=== PATIENT | male | born 1990 | race Two or more races ===

== ENCOUNTER 2021-07-07 22:27 | Emergency (ER) | payer MEDICAID, OTHER ==
[~2021-07-07] VITALS: Ht 167.6 cm; Wt 77.1 kg
--- NOTE | 2021-07-07 22:42 | NUR ---
PT BIBSELF C/O SI AND FEELING DEPRESSED. PT AAOX4 BREATHING EVENLY AND UNLABORED. ALL BELONGINGS TAKEN AND PLACED IN LOCKER. PT CHANGED INTO GOWN. PT ATTACHED TO MONITOR AND POX. SITTER AT BEDSIDE
[2021-07-07 22:58] LABS: BASOPHILS # (AUTO) 0.2 K/uL (0.0-0.2); BASOPHILS % (AUTO) 1.4 % (0.0-2.0); EOSINOPHILS % (AUTO) 1.1 % (0.0-6.0); HEMATOCRIT 47 % (39-51); HEMOGLOBIN 15.4 g/dL (13.5-17.5); LYMPHOCYTES # (AUTO) 0.8 K/uL (0.8-4.8); LYMPHOCYTES % (AUTO) 6.5 % (20.0-44.0); MEAN CORPUSCULAR HGB CONC 33 g/dl (31.0-36.0); MEAN CORPUSCULAR VOLUME 94 fL (80-96); MONOCYTES # (AUTO) 0.6 K/uL (0.1-1.30); MONOCYTES % (AUTO) 5.1 % (2.0-12.0); NEUTROPHILS % (AUTO) 85.9 % (43.0-81.0); PLATELET COUNT (AUTO) 344 K/uL (150-450); RED BLOOD CELL COUNT(AUTO) 4.96 MIL/uL (4.5-6.0); WHITE BLOOD COUNT (AUTO) 11.7 K/uL (4.3-11.0)
[2021-07-07 23:00] LABS: BILIRUBIN,URINE Negative (NEGATIVE); COLOR,URINE YELLOW (YELLOW); LEUKOCYTE ESTERASE ,URINE Negative (NEGATIVE); NITRITE, URINE Negative (NEGATIVE); PH,URINE 7.5 (5.0-8.0); PROTEIN,URINE Negative (NEGATIVE); UGLUCOSE Negative (NEGATIVE)
[2021-07-07 23:08] LABS: CALCIUM, SERUM 8.7 mg/dL (8.5-10.1); CARBON DIOXIDE 30 mmol/L (21-32); CHLORIDE 103 mmol/L (98-107); CREATININE 0.9 mg/dL (0.6-1.3); GLUCOSE 111 mg/dL (74-106); POTASSIUM 4.1 mmol/L (3.5-5.1); SODIUM SERUM 139 mmol/L (136-145); UREA NITROGEN, BLOOD 6 mg/dL (7-18)
[2021-07-07 23:16] LABS: ALANINE AMINOTRANSFERASE 58 U/L (12-78); ALKALINE PHOSPHATASE 94 U/L (46-116); ASPARTATE AMINOTRANSFERASE 36 U/L (15-37); BILIRUBIN,DIRECT 0.2 mg/dL (0.0-0.2); BILIRUBIN,TOTAL 0.6 mg/dL (0.2-1.0); TOTAL PROTEIN, SERUM 8.4 g/dL (6.4-8.2)
[2021-07-07 23:17] LABS: ACETAMINOPHEN 0 ug/ml (10-30); ALCOHOL, BLOOD < 3 mg/dL (0-0)
--- NOTE | 2021-07-08 00:06 | NUR ---
PT WALKED TO RESTROOM, NEEDS MET
--- NOTE | 2021-07-08 01:15 | NUR ---
PT SLEEPING, ATTACHED TO MONITOR, NAD
--- NOTE | 2021-07-08 02:36 | NUR ---
PT SLEEPING, ATTACHED TO MONITOR, BREATHING EVENLY AND UNLABORED
--- NOTE | 2021-07-08 03:20 | NUR ---
CLINICALS AND FACE SHEET FAXED TO [facility]
--- NOTE | 2021-07-08 03:28 | NUR ---
Patient is resting comfortably in bed with eyes closed. Easily aroused. VSS
--- NOTE | 2021-07-08 04:29 | NUR ---
COVID SWAB SENT TO LAB
--- NOTE | 2021-07-08 05:53 | NUR ---
faxed covid result to [facility]
--- NOTE | 2021-07-08 06:08 | NUR ---
SPOKE TO ART AT [facility]. . HAS REC'D THE COVID RESULT
--- NOTE | 2021-07-08 07:03 | NUR ---
Patient is resting comfortably in bed with eyes closed. Easily aroused. VSS
--- NOTE | 2021-07-08 10:58 | NUR ---
TINA met with pt. Per pt., he wanted a referral to [facility]. TINA faxed over clinical reports to [facility] [[phone]]. TINA will notify nurse once [facility] has a bed open.
--- NOTE | 2021-07-08 11:27 | NUR ---
SS Consult: SS consult for SI. Pt. Is a 30-year-old male. Pt. demonstrates adequate insight to the reason for hospitalization. Per pt., he was brought to hospital by manager of manufacturing due to unusual behavior on the streets. Pt. was oriented x3, alert, and cooperative. During interview, pt. was capable of following directions, made appropriate eye-contact, but tend to forget. Per pt., he just got out of [facility] about [facility] weeks ago and has been homeless for a week. Pt. reported that he stayed with his dad once he got out of [facility], but his dad kicked him out. Per pt., he reports having no adequate support. Pt. mentioned that he has been going to a friend to shower [no information provided]. Pt. reported having SI thoughts and tried hurting himself by jumping in front of traffic. SW explored pt.'s Hx of mental health and substance abuse. Pt. reported no Hx of mental health, HI, paranoia or delusions. Per pt., he hallucinates, but is not sure. Pt. reported that he has been hearing, "Someone is trying to kill you." Pt. reported that he smokes marijuana in the past. TINA explored pt.'s living situation. Per pt., he lives on the streets. SW explored pt.'s financial status. Per pt., he just got hired to a new job about a week ago but has not gone to work due to being homeless. Per pt., it has been difficult. Pt. is willing to go [facility]. TINA faxed clinical reports to [facility] [Ari [phone]]. Pt. was willing to sign Homeless Waiver. Plan: TINA provided available homeless resources and pt. accepted. TINA made a referral to [facility] for pt. due to SI. (If denied: Pt. was offered resources but pt. denies interest at this time.). Once discharge, per pt., he will return to (home or wherever) [address of place]. Resources Provided: Year-round shelters: [facility] [address] [place] [address] ; [facility] [address] [place] [address]; [facility] [id number] [facility] [address] Winter Shelters: Niraj Haji [place] Provider: [facility] [place] Address: [address], [address] # of Beds: 47 Population Served: [facility] 6 | [facility] Quynh Gregory [place] Provider: [facility] Address: [address] [place] [address], [address] # of Beds: 66 Population Served: [facility] Jackson [place] Provider: [facility] Address: [address] [facility], [address] # of Beds: 56 Population Served: [facility] [place] Provider: /Ms. [facility] Address: [address] [facility], [address] # of Beds: 49 Population Served: [facility] 8 | [facility] Provider: [facility] Address: [address] [facility], [address] # of Beds: 37 Population Served: [facility] Hygiene: [facility]: [address] [facility] ; [facility] [facility] [address] [facility] ; [facility] [address] [facility] . Food Resources: [place] [facility] at [facility]- [address] [facility]; Meet Each Need with Dignity ([facility]) [address] [facility]; [facility] Food [facility] [address] [facility]; [facility] 8582 [facility]. Mental Health resources provided: [facility] [address] [place] [address] ; [facility] [address] [facility] [address], [place] [address] ; [facility] [address] [place] [address] ; [facility] [place], [place] [id number] Healthcare Clinics: [facility] [address], [address] [place]. [place] ; [facility] [address] [facility] [address] [place] [address]; [facility] [address] [facility] [place] [address] [phone] Counseling--Outpatient [facility] [address] [facility], [place] [address] (Specializes in in-depth psychotherapy for emotional distress: anxiety, depression, interpersonal conflicts, life transitions, childhood abuse) [facility] [address] [place] [address] (Assist with solving problem marital difficulties, separation & divorce, aging parents, & grief, chronic & terminal illness) [facility] [address] [place] [address] (Deal with loss & grief, anxiety, marital difficulties) [facility] [address], [address] [place] [address] (Provide in-home mental services to people who are incapable of leaving their homes) [facility] [address] [place] [address] [facility] [address] [place] [address] PSYCHIATRIC OUTPATIENT SERVICES [facility] Partial Hospitalization and Intensive Outpatient Program (Managed Care and [place] Only)[address] [address] Julian. [facility] [phone] [facility] Partial Hospitalization and Outpatient [id number] [place], [place] [phone] ASTRID SHAE [facility] [place] [address] [place], [place] [phone] [facility] Astrid Guzman Partial Hospitalization and Outpatient [id number] Leah Santiago, [phone] Substance Abuse resources provided included: [facility] Substance Abuse Self-Helpline ([facility]) ; [facility] [address] [facility]. [place] [address] ; [facility] [address] [facility] [address] ; [facility] [address] [place] [address] ; [facility] [address] [facility] [phone] ; [facility] [address] [facility] [phone] ; Priscilla [facility] [address] [facility] [phone] ; [facility] Substance Abuse Helpline([facility] ; [facility] ; [facility] [place]; [facility] [place]; [facility] [place]; [facility] Astrid Guzman; [facility] [place]; [facility]; [facility] [place]; [facility] [place] [place]; Alcoholics Anonymous -[facility]; Ol-Gzcd-Bzxpwgk ; Marijuana Anonymous [facility]; Narcotics Anonymous [email or web address];
--- NOTE | 2021-07-08 11:32 | NUR ---
PT ACCEPTED TO [facility] UNDER DR. PAN CALL [phone] X [phone] FOR REPORT AFTER 1200
--- NOTE | 2021-07-08 11:36 | NUR ---
CALLED TRANSPORT ETA 60 MINS PER HAILEY.
--- NOTE | 2021-07-08 12:56 | NUR ---
patient left and verbalized "i am not suicidal anymore", md notified.
[2021-07-08 12:59] VITALS: BP 128/77
--- NOTE | 2021-07-08 13:00 | NUR ---
Patient given written and verbal discharge instructions. Patient verbalizes understanding of instructions. Patient is ambulatory with steady gait. Refuses offer of residential placement. Patient given list of available shelters in surrounding area.
== END 2021-07-08 13:00 | disposition home or self-care (01) ==
LOC: ER 22:29
DX: R45.851 Suicidal ideations (principal); F32.A Depression, unspecified; Z59.02 Unsheltered homelessness; D72.829 Elevated white blood cell count, unspecified; R03.0 Elevated blood-pressure reading, without diagnosis of hypertension; Z53.29 Procedure and treatment not carried out because of patient's decision for other reasons; Z20.822 Contact with and (suspected) exposure to COVID-19
CPT/HCPCS: 36415; 80048; 80076; 80143; 80307; 80320; 81003; 85025; 87426; 99285; C9803; G0480

== ENCOUNTER 2021-07-08 19:48 | Emergency (ER) | payer MEDICAID ==
[~2021-07-08] VITALS: Ht 167.6 cm; Wt 77.1 kg
--- NOTE | 2021-07-08 19:57 | NUR ---
BIB 90 AND [employer] FOR [place], STATED SOMEONE IS CHASING HIM. "HERE FOR DOING WILD THINGS" BUT WOULD NOT SPECIFY. PT A/OX3, DROWSY & SLURRED SPEECH NOTED. TOLERATING R/A WELL. SAFETY PRECAUTIONS IN PLACE WITH 1:1 SITTER.
[2021-07-08] MEDS ORDERED: OLANZAPINE 10 MG VIAL IM ONE ×2 (20:27→20:30)
--- NOTE | 2021-07-08 20:37 | NUR ---
2020 PT PUT ON 5150 HOLD FOR DTO/DTS BY GENE. SHERWIN POST AWARE
--- NOTE | 2021-07-08 20:39 | NUR ---
BREANNE CHIMNEY BUILDER HELPER AT PT'S BEDSIDE
[2021-07-08 20:50] LABS: BASOPHILS % (AUTO) 0.1 % (0.0-2.0); HEMATOCRIT 49 % (39-51); HEMOGLOBIN 16.1 g/dL (13.5-17.5); LYMPHOCYTES # (AUTO) 0.6 K/uL (0.8-4.8); LYMPHOCYTES % (AUTO) 2.5 % (20.0-44.0); MEAN CORPUSCULAR HGB CONC 33 g/dl (31.0-36.0); MEAN CORPUSCULAR VOLUME 95 fL (80-96); MONOCYTES # (AUTO) 1.2 K/uL (0.1-1.30); MONOCYTES % (AUTO) 5.3 % (2.0-12.0); NEUTROPHILS # (AUTO) 20.9 K/uL (1.8-8.9); NEUTROPHILS % (AUTO) 92.1 % (43.0-81.0); PLATELET COUNT (AUTO) 359 K/uL (150-450); RED BLOOD CELL COUNT(AUTO) 5.13 MIL/uL (4.5-6.0); WHITE BLOOD COUNT (AUTO) 22.8 K/uL (4.3-11.0)
[2021-07-08 20:57] LABS: CALCIUM, SERUM 9.3 mg/dL (8.5-10.1); CARBON DIOXIDE 24 mmol/L (21-32); CHLORIDE 104 mmol/L (98-107); CREATININE 1.7 mg/dL (0.6-1.3); GLUCOSE 94 mg/dL (74-106); POTASSIUM 3.3 mmol/L (3.5-5.1); SODIUM SERUM 139 mmol/L (136-145); UREA NITROGEN, BLOOD 10 mg/dL (7-18)
[2021-07-08 21:11] LABS: ALANINE AMINOTRANSFERASE 55 U/L (12-78); ALKALINE PHOSPHATASE 98 U/L (46-116); ASPARTATE AMINOTRANSFERASE 39 U/L (15-37); BILIRUBIN,DIRECT 0.2 mg/dL (0.0-0.2); BILIRUBIN,TOTAL 0.8 mg/dL (0.2-1.0); TOTAL PROTEIN, SERUM 8.8 g/dL (6.4-8.2)
[2021-07-08 21:13] LABS: ALCOHOL, BLOOD < 3 mg/dL (0-0)
[2021-07-08 21:14] LABS: ACETAMINOPHEN < 10 ug/ml (10-30)
--- NOTE | 2021-07-08 22:08 | NUR ---
URINE COLLECTED AND GIVEN TO LAB
[2021-07-08 22:18] LABS: BILIRUBIN,URINE MODERATE (NEGATIVE); COLOR,URINE AMBER (YELLOW); LEUKOCYTE ESTERASE ,URINE Negative (NEGATIVE); NITRITE, URINE Negative (NEGATIVE); PROTEIN,URINE >=300 mg/dl (NEGATIVE); UGLUCOSE 100 MG/DL mg/dL (NEGATIVE)
[2021-07-08 22:41] LABS: BACTERIA,URINE Rare /HPF (None Seen); SQUAMOUS EPITHELIAL CELL,UR Few /HPF (None Seen); WBC,URINE NONE SEEN /HPF (0-3)
--- NOTE | 2021-07-08 23:00 | NUR ---
Patient is resting comfortably in bed with eyes closed. Easily aroused. VSS
[2021-07-08] MEDS ORDERED: POTASSIUM CHLORIDE 20 MEQ TAB.PRT.SR PO ONE (23:50)
[2021-07-09] MEDS ORDERED: POTASSIUM CHLORIDE 20 MEQ TAB.PRT.SR PO ONE
[2021-07-09] MEDS ORDERED: IV NS 0.9% 1,000 ML BAG IV ONE
--- NOTE | 2021-07-09 | NUR ---
Pt sleeping, breathing evenly and unlabored. Pt attached to monitor.
--- NOTE | 2021-07-09 01:00 | NUR ---
Patient is resting comfortably in bed with eyes closed. Easily aroused. VSS
--- NOTE | 2021-07-09 02:00 | NUR ---
Pt sleeping, breathing evenly and unlabored. Pt attached to monitor.
--- NOTE | 2021-07-09 03:00 | NUR ---
Patient is resting comfortably in bed with eyes closed. Easily aroused. VSS
--- NOTE | 2021-07-09 04:00 | NUR ---
Pt sleeping, breathing evenly and unlabored. Pt attached to monitor.
--- NOTE | 2021-07-09 05:00 | NUR ---
Pt sleeping, breathing evenly and unlabored. Pt attached to monitor.
--- NOTE | 2021-07-09 06:02 | NUR ---
Patient is resting comfortably in bed with eyes closed. Easily aroused. VSS
--- NOTE | 2021-07-09 07:07 | NUR ---
CRISIS TEAM NOTE WAS FAXED TO [facility]
--- NOTE | 2021-07-09 09:10 | NUR ---
Per [facility] request, SW refaxed clinicals and crisis note to [facility] [[facility] [place] [address] FAX:[phone]] for inpatient psychiatric treatment.
--- NOTE | 2021-07-09 14:08 | NUR ---
received a call from Art from [facility] patient is accepted under Dr. Sonido felder [phone] [address]
--- NOTE | 2021-07-09 14:19 | NUR ---
CALLED [facility] AND SET UP BLS TRANSPORT. ETA [phone]
--- NOTE | 2021-07-09 14:21 | NUR ---
TINA notified by [facility] that pt. was accepted under Dr. Martinez and nurse to nurse report to be called at [phone]. TINA notified ED.
[2021-07-09 15:00] VITALS: BP 18/80
--- NOTE | 2021-07-09 15:55 | NUR ---
patient picked up by private ambulance in no distress going to so maría elena felder,.
== END 2021-07-09 15:55 ==
LOC: ER 19:50
DX: R45.851 Suicidal ideations (principal); F15.10 Other stimulant abuse, uncomplicated; Z59.00 Homelessness unspecified
CPT/HCPCS: 36415; 80048; 80076; 80143; 80307; 80320; 81001; 83735; 85025; 96360; 96372; 99285; J3490; J7030; G0480